=== PATIENT | female | born 1990 | race Caucasian/White ===

== ENCOUNTER → 2016-10-31 | Outpatient (CLI) | payer OTHER ==
[~2016-10-31] MED LIST: ASPI81CH PO; DOCU10CA PO; GASTROGRAFIN SOLUTION 30ML (Q9963) As Ordered ONE; ISOVUE-370 76% 100ML VIAL (Q9967) As Ordered ONE; LORA10TA2 PO; PERC5TAB12 PO; TYLE325T5 PO
--- NOTE | 2016-10-31 17:22 | REP ---
CT ABDOMEN AND PELVIS WITH IV CONTRAST: 10/31/2016: Clinical history: Right lower quadrant abdominal pain. Evaluate for appendicitis. Comparison: KUB 06/10/2006. Technique: The patient received Gastrografin 10 mL and 290 mL of flavored water for two doses per our bowel contrast protocol. Subsequently infusion of 100 mL Isovue 370 performed scanning through the abdomen pelvis with both coronal and sagittal reconstructions. CT abdomen: Lung bases are clear. The heart is not enlarged. There is no and no pericardial thickening or effusion. The liver is mildly enlarged at 18 cm vertical diameter in the midclavicular line. Spleen is also enlarged measuring 16 cm in vertical diameter. There is no hepatic mass or biliary dilatation. No splenic lesion. The gallbladder without calcified stone or mass. Pancreas, adrenal glands, kidneys unremarkable. Aorta is normal. There is no periaortic or retroperitoneal pathologic lymphadenopathy. Small bowel loops in the upper abdomen were unremarkable. 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 The terminal ileum was grossly intact with oral contrast from the distal ileum through the terminal ileum into the cecum and right colon. No sign of colitis or diverticulitis. The appendix is seen and is not abnormally dilated. There are no inflammatory changes adjacent to it. There are multiple small nodes adjacent to the cecum that may reflect some mesenteric adenitis. I see no ventral or inguinal hernia. Bone windows show lumbar and lower thoracic spine with minor degenerative changes. Tiny osteophytes. Visualized ribs intact. CT pelvis: Bony hips, sacrum, pelvis, SI joints and lumbosacral junction were all grossly intact. Small bowel loops are contrast filled but not dilated. The distal and terminal ileum show no acute finding. The distal left colon and sigmoid proximally were unremarkable. Distal rectum is collapsed. Wall appears possibly thickened versus collapsed. I do not see pericolonic or perirectal edema. There is no free sacral soft tissue abnormality or mass. Uterus anteverted tilted towards the right side of the pelvis. No adnexal mass. No ventral or inguinal hernia in the pelvis. No inguinal adenopathy. Impression: 1. There are a few scattered small nodes adjacent to the cecum that might reflect mesenteric adenitis. The ileocecal valve as fatty at the cecum and terminal ileum and distal ileum are unremarkable. 2. The appendix seen and normal. No inflammatory change or dilatation. There is no perforation, abscess or other abnormality in the region of the cecum and appendix. 3. Remainder of abdomen and pelvis grossly unremarkable and without acute finding. 4. No other finding. Signed by Abhi Akers MD 10/31/2016 10:25 P
== END ==
LOC: M RAD 14:17
PROVIDERS: ATTEND Physician Assistant
DX: R10.9 Unspecified abdominal pain (principal)
CPT/HCPCS: 74177; Q9963; Q9967

== ENCOUNTER → 2018-02-04 | Outpatient (REF) | LOC: M SMT 08:23 | DX: Z02.71 Encounter for disability determination (principal) ==

== ENCOUNTER 2018-03-21 11:46 | Emergency (ER) | payer MEDICAID, OTHER, SELFPAY ==
[~2018-03-21] VITALS: Ht 182.9 cm; Wt 136.4 kg
[~2018-03-21 11:46] MED LIST changes: -GASTROGRAFIN SOLUTION 30ML (Q9963) As Ordered ONE; -ISOVUE-370 76% 100ML VIAL (Q9967) As Ordered ONE; -LORA10TA2 PO; +LORA10TA3 PO
--- NOTE | 2018-03-21 12:42 | REP ---
Clinical: Cough . Comparison: None . Technique: PA and lateral. Findings: The mediastinum and cardiac silhouette are normal. The lung olson are clear and without acute consolidation, effusion, or pneumothorax. The skeletal structures are intact and normal. Impression: 1. No acute cardiopulmonary process. Electronically Signed by Anjel Funez MD 03/21/2018 12:33 P
[2018-03-21 12:57] LABS: INFLUENZA A AMPLIFICATION NEGATIVE (NEGATIVE); INFLUENZA B AMPLIFICATION NEGATIVE (NEGATIVE)
[2018-03-21 13:29] VITALS: BP 128/59
== END 2018-03-21 13:31 | disposition home or self-care (01) ==
LOC: M ED 11:46
DX: J06.9 Acute upper respiratory infection, unspecified (principal)

== ENCOUNTER → 2019-11-28 | Outpatient (REF) | payer MEDICAID, OTHER ==
[~2019-11-28] MED LIST changes: -ASPI81CH PO; +ASPI81CH49 PO
== END ==
LOC: M LAB REF 17:41
PROVIDERS: ATTEND Physician Assistant
DX: B37.3 Candidiasis of vulva and vagina (principal)

== ENCOUNTER → 2019-12-23 | Outpatient (REF) | payer OTHER | LOC: M LAB REF 12:27 | PROVIDERS: ATTEND Physician Assistant | DX: J02.9 Acute pharyngitis, unspecified (principal) ==

== ENCOUNTER → 2022-01-22 | Outpatient (REF) | payer MEDICAID ==
[2022-01-22 15:56] LABS: ALBUMIN 3.4 GM/DL (3.2-5.2); ALT/SGPT 40 U/L (12-78); BILIRUBIN,TOTAL 0.4 MG/DL (0.2-1.0); BLOOD UREA NITROGEN 9 MG/DL (7-18); CALCIUM LEVEL 9.1 MG/DL (8.5-10.1); CARBON DIOXIDE LEVEL 26 MEQ/L (21-32); CHLORIDE LEVEL 106 MEQ/L (98-107); CHOLESTEROL LEVEL 246 MG/DL (<200); CREATININE FOR GFR 0.64 MG/DL (0.55-1.30); GLOMERULAR FILTRATION RATE > 60.0 (>60); GLUCOSE, FASTING 92 MG/DL (70-100); HDL CHOLESTEROL 40 MG/DL (>40); LDL CHOLESTEROL 136 MG/DL (<100); NON-HDL-C 206 MG/DL; POTASSIUM SERUM 4.3 MEQ/L (3.5-5.1); SODIUM LEVEL 139 MEQ/L (136-145); TOTAL PROTEIN 7.3 GM/DL (6.4-8.2); TRIGLYCERIDES LEVEL 348 MG/DL (<150)
[2022-01-22 20:15] LABS: HEMOGLOBIN A1c 5.4 %
== END ==
LOC: M SFHCLERA 09:46
PROVIDERS: ATTEND Student in an Organized Health Care Education/Training Program
DX: E66.01 Morbid (severe) obesity due to excess calories (principal); R60.9 Edema, unspecified

== ENCOUNTER → 2022-12-16 | Outpatient (REF) | payer OTHER, MEDICAID ==
[2022-12-16 14:46] LABS: ALBUMIN 3.4 G/DL (3.2-5.2); ALKALINE PHOSPHATASE 104 U/L (46-116); ALT/SGPT 31 U/L (7.0-40); AST/SGOT 21 U/L (<34); BILIRUBIN,TOTAL 0.4 MG/DL (0.3-1.2); BLOOD UREA NITROGEN 11 MG/DL (9-23); CARBON DIOXIDE LEVEL 28 MMOL/L (20-31); CHLORIDE LEVEL 105 MMOL/L (98-107); CHOLESTEROL LEVEL 218 MG/DL (<200); CHOLESTEROL RISK RATIO 5.53 (<5); CREATININE FOR GFR 0.51 MG/DL (0.55-1.30); GLOMERULAR FILTRATION RATE > 60.0 (>60); GLUCOSE, FASTING 78 MG/DL (60-100); HDL CHOLESTEROL 39.4 MG/DL (>40); NON-HDL-C 178.6 MG/DL; POTASSIUM SERUM 4.6 MMOL/L (3.5-5.1); SODIUM LEVEL 140 MMOL/L (136-145); TOTAL PROTEIN 7.1 G/DL (5.7-8.2); TRIGLYCERIDES LEVEL 183 MG/DL (<150)
== END ==
LOC: M SFHCLERA 08:34
PROVIDERS: ATTEND Student in an Organized Health Care Education/Training Program
DX: R60.0 Localized edema (principal); E78.5 Hyperlipidemia, unspecified

== ENCOUNTER 2023-04-10 07:43 | Day surgery (SDC) | payer OTHER ==
[~2023-04-10] VITALS: Ht 182.9 cm; Wt 166.2 kg
[~2023-04-10 07:43] MED LIST changes: +FURO20TA2 PO
[2023-04-10] MEDS ORDERED: LR 1,000 ML IV SCH ×2 (08:05→11:00)
[2023-04-10] MEDS ORDERED: EMLA CREAM 5GM TUBE (LIDOCAINE/PRILOCAINE) TOP ONE (08:05)
[2023-04-10] MEDS ORDERED: SUGAMMADEX SODIUM 500 MG/5 ML VIAL (BRIDION) As Ordered ONE (09:03)
[2023-04-10] MEDS ORDERED: LIDOCAINE 2% 100MG/5ML SDV (FOR ANES.) As Ordered ONE (09:03)
[2023-04-10] MEDS ORDERED: ONDANSETRON 4MG 2ML VIAL As Ordered ONE (09:03)
[2023-04-10] MEDS ORDERED: ROCURONIUM BROMIDE 50MG/5ML VIAL As Ordered ONE (09:03)
[2023-04-10] MEDS ORDERED: propofoL 200 MG/20 ML VIAL As Ordered ONE (09:03)
[2023-04-10] MEDS ORDERED: MIDAZOLAM INJ 2MG/2ML VIAL As Ordered ONE (09:08)
[2023-04-10] MEDS ORDERED: fentaNYL 100 MCG/2 ML INJECTION As Ordered ONE (09:08)
[2023-04-10] MEDS ORDERED: LIDOCAINE W/EPINEPHRINE 1% 20ML VIAL As Ordered ONE (09:53)
[2023-04-10] MEDS ORDERED: OXYMETAZOLINE 0.05% NASAL SPRAY (AFRIN) As Ordered ONE (09:54)
[2023-04-10] MEDS ORDERED: ACETAMINOPHEN 1000MG 100ML IV BAG As Ordered ONE (10:20)
[2023-04-10] MEDS ORDERED: ONDANSETRON 4MG 2ML VIAL IV PRN (11:00)
[2023-04-10] MEDS ORDERED: oxyCODONE 5MG TAB PO PRN (11:00)
[2023-04-10] MEDS ORDERED: fentaNYL 100 MCG/2 ML INJECTION IV PRN (11:00)
[2023-04-10] MEDS: HYDROMORPHONE HCL 0.5 MG/ 0.5 ML SYRINGE IV PRN ×2 (11:13→11:19)
[2023-04-10 12:35] VITALS: BP 133/84; TEMP 97.6; O2SAT 96
== END 2023-04-10 12:35 | disposition home or self-care (01) ==
LOC: M SDC 07:43
PROVIDERS: ATTEND Dentist Oral and Maxillofacial Surgery
DX: K02.9 Dental caries, unspecified (principal); F41.9 Anxiety disorder, unspecified; Z79.899 Other long term (current) drug therapy; Z91.013 Allergy to seafood
CPT/HCPCS: 81025; 88300; D7210; D9223; J0131; J1100; J1170; J2250; J2405; J3010

== ENCOUNTER → 2023-06-15 | Outpatient (REF) | payer OTHER, MEDICAID ==
[2023-06-15 13:34] LABS: FREE T4 0.97 NG/DL (0.89-1.76)
[2023-06-15 13:35] LABS: ALBUMIN 3.2 G/DL (3.2-5.2); ALKALINE PHOSPHATASE 84 U/L (46-116); ALT/SGPT 21 U/L (7.0-40); AST/SGOT 12 U/L (<34); BILIRUBIN,TOTAL 0.4 MG/DL (0.3-1.2); BLOOD UREA NITROGEN 15 MG/DL (9-23); CALCIUM LEVEL 8.9 MG/DL (8.5-10.1); CARBON DIOXIDE LEVEL 27 MMOL/L (20-31); CHLORIDE LEVEL 108 MMOL/L (98-107); CHOLESTEROL LEVEL 210 MG/DL (<200); CREATININE FOR GFR 0.52 MG/DL (0.55-1.30); GLOMERULAR FILTRATION RATE > 60.0 (>60); GLUCOSE, FASTING 95 MG/DL (60-100); HDL CHOLESTEROL 36.2 MG/DL (>40); LDL CHOLESTEROL 144.4 MG/DL (<100); NON-HDL-C 173.8 MG/DL; POTASSIUM SERUM 4.4 MMOL/L (3.5-5.1); SODIUM LEVEL 140 MMOL/L (136-145); THYROID STIMULATING HORMONE 5.303 uIU/ML (0.55-4.78); TOTAL 25(OH) VITAMIN D 24.1 NG/ML (20.0-100.0); TOTAL PROTEIN 6.5 G/DL (5.7-8.2); TRIGLYCERIDES LEVEL 147 MG/DL (<150)
[2023-06-15 13:36] LABS: BASO % 0.4 % (0.0-1.0); EOS # 0.4 10^3/uL (0.0-0.5); EOS % 4.4 % (0.0-3.0); HEMOGLOBIN 12.7 g/dl (12.0-15.5); LYMPH # 2.8 10^3/uL (1.5-5.0); LYMPH % 34.4 % (24.0-44.0); MEAN CORPUSCULAR HEMOGLOBIN 27.5 pg (27.0-33.0); MEAN CORPUSCULAR HGB CONC 31.8 g/dl (32.0-36.5); MEAN CORPUSCULAR VOLUME 86.8 fl (80.0-96.0); MONO # 0.4 10^3/uL (0.0-0.8); MONO % 5.1 % (2.0-8.0); NEUTROPHILS # 4.5 10^3/uL (1.5-8.5); NEUTROPHILS % 55.2 % (36.0-66.0); PLATELET COUNT, AUTOMATED 205 10^3/uL (150-450); RED BLOOD COUNT 4.61 10^6/uL (4.00-5.40); WHITE BLOOD COUNT 8.2 10^3/uL (4.0-10.0)
[2023-06-15 14:09] LABS: HEMOGLOBIN A1c 5.3 % (4.0-6.0)
== END ==
LOC: M SFHCADAM 08:00
PROVIDERS: ATTEND Physician Assistant
DX: R60.0 Localized edema (principal); E78.5 Hyperlipidemia, unspecified; E66.01 Morbid (severe) obesity due to excess calories

== ENCOUNTER 2024-07-19 14:22 | Emergency (ER) | payer MEDICAID, OTHER ==
[~2024-07-19] VITALS: Ht 182.9 cm; Wt 176.9 kg
[2024-07-19 17:07] VITALS: BP 141/92; TEMP 97.1; O2SAT 100
== END 2024-07-19 18:25 | disposition home or self-care (01) ==
LOC: M ED 14:22 → EDBD 14:22 → M ED 18:25
DX: S31.819A Unspecified open wound of right buttock, initial encounter (principal); Y92.89 Other specified places as the place of occurrence of the external cause; Y93.89 Activity, other specified; Y99.8 Other external cause status; F41.9 Anxiety disorder, unspecified; F32.A Depression, unspecified

== ENCOUNTER → 2024-07-29 | Outpatient (REF) | payer OTHER | LOC: M LAB REF 16:55 | PROVIDERS: ATTEND Physician Assistant | DX: B34.9 Viral infection, unspecified (principal) ==